=== PATIENT | female | born 1960 | race Caucasian/White ===

== ENCOUNTER 2025-07-27 11:51 | Inpatient (IN) | payer MEDICAID, OTHER ==
[~2025-07-27] VITALS: Ht 167.6 cm; Wt 80.3 kg
[2025-07-27 13:02] LABS: PLATELET COUNT (AUTO) 190 K/uL (150-450); RED BLOOD CELL COUNT(AUTO) 4.86 MIL/uL (4.00-5.20); RED CELL DISTRIBUTION WIDTH 13.1 % (11.5-14.5); WHITE BLOOD COUNT (AUTO) 6.1 K/uL (4.5-11.0)
[2025-07-27 13:10] LABS: CALCIUM, TOTAL 8.9 mg/dL (8.8-10.5); CREATININE 0.88 mg/dL (0.60-1.30); GLOMERULAR FILTR. RATE CALC > 60 mL/min (>60); GLUCOSE,RANDOM 112 mg/dL (70-110); SODIUM SERUM 139 mmol/L (136-145); UREA NITROGEN, BLOOD 16 mg/dL (7-18)
[2025-07-27 13:15] LABS: APPEARANCE,URINE CLEAR (CLEAR); GLUCOSE, URINE (UA) NEGATIVE (NEGATIVE); LEUKOCYTE ESTERASE ,URINE NEGATIVE (NEGATIVE); NITRATE,URINE NEGATIVE (NEGATIVE); OCCULT BLOOD,URINE NEGATIVE (NEGATIVE); PH,URINE DRUG SCREEN 5.5 (5.0-8.0); SPECIFIC GRAVITIY, URINE 1.021 (1.003-1.030)
[2025-07-27 13:26] LABS: COVID AG,FIA SOURCE NASAL SWAB; SARS-COV2 (COVID) ANTIGEN,FIA Negative (Negative)
[2025-07-27 14:12] LABS: ALCOHOL, URINE DRUG SCREEN NEGATIVE (NEGATIVE); AMPHET/METH SCREEN,URINE NEGATIVE (NEGATIVE); BARBITURATE SCREEN, URINE NEGATIVE (NEGATIVE); CANNABINOID SCREEN,URINE NEGATIVE (NEGATIVE); COCAINE SCREEN,URINE NEGATIVE (NEGATIVE); METHADONE SCREEN, URINE NEGATIVE (NEGATIVE)
[2025-07-27 19:04] VITALS: O2SAT 98
[2025-07-27] MEDS ORDERED: ZOLPIDEM TARTRATE 10 MG TABLET PO PRN (22:15)
[2025-07-27 23:10] VITALS: BP 158/72; PULSE 61; RESP 18; TEMP 97.6; O2SAT 99
[2025-07-28] MEDS ORDERED: MAG HYDROX/ALUMINUM HYD/SIMETH ES 30 ML SUSPENSION UDCUP PO PRN (00:30)
[2025-07-28] MEDS ORDERED: MAGNESIUM HYDROXIDE SUSPENSION 30 ML UDCUP PO PRN (00:30)
[2025-07-28] MEDS ORDERED: ACETAMINOPHEN 325 MG TABLET PO PRN (00:30)
[2025-07-28] MEDS ORDERED: OMEPRAZOLE 20 MG CAPSULE PO PRN (00:30)
[2025-07-28] MEDS ORDERED: IBUPROFEN 600 MG TABLET PO PRN (00:30)
[2025-07-28] MEDS ORDERED: BACITRACIN 28 GM OINTMENT TP PRN (00:30)
[2025-07-28] MEDS ORDERED: ONDANSETRON 4 MG TABLET PO PRN (00:30)
[2025-07-28] MEDS ORDERED: LOPERAMIDE HCL 2 MG CAPSULE PO PRN (00:30)
[2025-07-28] MEDS ORDERED: PETROLATUM,WHITE 28 GM JELLY TP PRN (00:30)
[2025-07-28] MEDS ORDERED: ALBUTEROL SULFATE HFA 90 MCG/PUFF 8 GM INHALER IH PRN (00:30)
[2025-07-28] MEDS ORDERED: BENZOCAINE/MENTHOL [CEPACOL] LOZENGE PO PRN (00:30)
[2025-07-28] MEDS ORDERED: SIMETHICONE 80 MG CHEWABLE TABLET CHEW PRN (02:30)
[2025-07-28] MEDS ORDERED: OxyCODONE HCL/ACETAMINOPHEN 5-325 MG TABLET PO PRN ×2 (02:30→14:30)
[2025-07-28] MEDS ORDERED: CALCIUM CARBONATE 500 MG CHEWABLE TABLET CHEW PRN (02:30)
[2025-07-28] MEDS: LANSOPRAZOLE 30 MG CAPSULE PO SCH (06:34)
[2025-07-28 07:33] LABS: CHOL/HDL RATIO 3.0 (3.9-5.7); LDL CHOL (CALC.) 79.0 mg/dL (0-130)
[2025-07-28] MEDS: SENNOSIDES 8.6 MG TABLET PO SCH (09:00)
[2025-07-28 09:50] VITALS: RESP 17
[2025-07-28] MEDS: CALCIUM [CALCIUM CARB 1250MG] 500 MG TABLET PO SCH (10:38)
[2025-07-28] MEDS: FUROSEMIDE 40 MG TABLET PO SCH (10:39)
[2025-07-28] MEDS: ASPIRIN 81 MG CHEWABLE TABLET PO SCH (10:39)
[2025-07-28] MEDS: PROPRANOLOL HCL 20 MG TABLET PO SCH (10:40)
[2025-07-28 20:01] VITALS: RESP 16
[2025-07-28] MEDS: LOSARTAN POTASSIUM 50 MG TABLET PO SCH (20:09)
[2025-07-29 11:22] VITALS: BP 133/51; PULSE 57; RESP 18; TEMP 97.7; O2SAT 97
[2025-07-29 20:00] VITALS: BP 139/71; PULSE 60; RESP 19; TEMP 98.7; O2SAT 98
[2025-07-29 20:55] VITALS: BP 141/68; PULSE 63; RESP 18; O2SAT 97
[2025-07-29] MEDS: OxyCODONE HCL/ACETAMINOPHEN 5-325 MG TABLET PO PRN (20:56)
[2025-07-30 08:20] VITALS: BP 131/74; PULSE 58; RESP 18; TEMP 97.1; O2SAT 97
[2025-07-30 22:20] VITALS: BP 100/60; PULSE 60; RESP 18; TEMP 96.7; O2SAT 98
[2025-07-31 11:06] VITALS: BP 126/65; PULSE 58; RESP 20; TEMP 97.9; O2SAT 98
[2025-07-31 11:07] VITALS: BP 126/55; PULSE 58; RESP 20; TEMP 97.9; O2SAT 98
[2025-07-31 12:10] VITALS: RESP 18
[2025-07-31 13:47] VITALS: BP 138/67; PULSE 58; RESP 18
[2025-07-31 21:33] VITALS: RESP 18
[2025-08-01 09:15] VITALS: BP 140/86; PULSE 70; RESP 18; TEMP 97.6; O2SAT 97
[2025-08-01 10:18] VITALS: RESP 17
[2025-08-01] MEDS ORDERED: FURO40TA6 PO (13:54)
[2025-08-01] MEDS ORDERED: OS500 PO (13:54)
[2025-08-01] MEDS ORDERED: LOSA-382 PO (13:54)
[2025-08-01] MEDS ORDERED: LANS-78 PO (13:54)
[2025-08-01] MEDS ORDERED: PROP20TA18 PO (13:54)
[2025-08-01] MEDS ORDERED: SENN-376 PO (13:54)
[2025-08-01] MEDS ORDERED: ASPI-1450 PO (13:54)
== END 2025-08-01 19:01 | DRG 761 ==
LOC: EMS 11:54 → EDBEDREQ 15:25 → 3EI 21:04 → EMS 21:10
PROVIDERS: ADMIT Psychiatry & Neurology Psychiatry; ATTEND Psychiatry & Neurology Psychiatry
DX: F25.9 Schizoaffective disorder, unspecified (principal); I11.0 Hypertensive heart disease with heart failure; I50.9 Heart failure, unspecified; B18.2 Chronic viral hepatitis C; F41.9 Anxiety disorder, unspecified; G47.00 Insomnia, unspecified; K21.9 Gastro-esophageal reflux disease without esophagitis; J44.9 Chronic obstructive pulmonary disease, unspecified; I48.20 Chronic atrial fibrillation, unspecified; Z20.822 Contact with and (suspected) exposure to COVID-19
CPT/HCPCS: 80048; 80061; 80307; 81003; 83036; 85025; 87081; 99285; G0480